=== PATIENT | female | born 1985 | race Caucasian/White ===

== ENCOUNTER 2018-05-25 13:27 | Emergency (ER) | payer SELFPAY ==
[~2018-05-25] VITALS: Ht 177.8 cm; Wt 90.0 kg
[~2018-05-25 13:27] MED LIST: MOTRIN400 MG OR
[2018-05-25 14:31] LABS: HEMATOCRIT 45.7 % (37.0-47.0); HEMOGLOBIN 14.9 g/dl (12.0-16.0); IMMATURE GRANULOCYTES 0.5 % (0.0-5.0); MEAN CELL VOLUME 89.6 fL CALC (80.0-100.0); MEAN CORPUSCULAR HGB 29.2 pG CALC (26.0-32.0); MEAN CORPUSCULAR HGB CONC 32.6 g/L CALC (32.0-36.0); NEUT# 6.42 thou/uL (2.00-7.15); RED BLOOD COUNT 5.1 mill/uL (4.20-5.60); RED CELL DISTRI WIDTH 13.7 % (11.5-15.5)
[2018-05-25 14:47] LABS: ANION GAP 18 (6-22 (CALC)); BUN 11 mg/dL (7-17); BUN/CREATININE RATIO 14 (12-20 (CALC)); CARBON DIOXIDE 28 mmol/l (22-30); CHLORIDE 101 mmol/l (95-108); CREATININE 0.8 mg/dL (0.5-1.0); GFR > 60 ML/MIN (>=60 (CALC)); GFR FOR AFR.AMER. > 60 ML/MIN (>=60 (CALC)); POTASSIUM 3.3 mmol/l (3.5-5.1); SODIUM 143 mmol/l (137-146)
[2018-05-25 14:54] LABS: URINE BILIRUBIN - DIPSTICK NEGATIVE (NEGATIVE); URINE BLOOD DIPSTICK SMALL (NEGATIVE); URINE COLOR YELLOW; URINE GLUCOSE - DIPSTICK NEGATIVE (NEGATIVE); URINE KETONE TRACE mg/dL (NEGATIVE); URINE LEUK ESTERASE TRACE (NEGATIVE); URINE PROTEIN - DIPSTICK TRACE mg/dL (NEG-TRACE); URINE UROBILINOGEN - DIPSTICK 0.2 E.U./dL (0.2)
[2018-05-25 14:57] LABS: URINE CLARITY CLEAR
[2018-05-25 14:58] LABS: COCAINE NEGATIVE (NEGATIVE); METHADONE NEGATIVE (NEGATIVE); TETRAHYDROCANNABIONOL POSITIVE (NEGATIVE)
[2018-05-25 14:59] LABS: BARBITURATES NEGATIVE (NEGATIVE); OXCYCODONE NEGATIVE (NEGATIVE); TRICYLIC ANTIDEPRESSANTS NEGATIVE (NEGATIVE); URINE NITRITE - DIPSTICK NEGATIVE (Negative)
[2018-05-25 15:02] LABS: URINE BACTERIA FEW hpf; URINE EPITHELIAL CELLS MODERATE EPI/hpf (0-FEW); URINE MUCUS FEW hpf (NONE-FEW); URINE WBC 0-2 WBC/hpf (0-5)
[2018-05-25] MEDS ORDERED: POTASSIUM CHLO20 ME1 PO (15:14)
[2018-05-25 15:21] VITALS: BP 149/107
== END 2018-05-25 15:37 | disposition home or self-care (01) | DRG 897 ==
LOC: ED 13:27
PROVIDERS: Family Medicine
DX: F15.180 Other stimulant abuse with stimulant-induced anxiety disorder (principal); E87.6 Hypokalemia; F17.210 Nicotine dependence, cigarettes, uncomplicated
CPT/HCPCS: J2060

== ENCOUNTER 2018-12-06 18:40 | Emergency (ER) | payer SELFPAY ==
[~2018-12-06] VITALS: Ht 177.8 cm; Wt 104.5 kg
[~2018-12-06 18:40] MED LIST changes: +POTASSIUM CHLO20 ME1 PO
[2018-12-06] MEDS ORDERED: ZITHROMAX500 MG PO (19:36)
[2018-12-06] MEDS ORDERED: TESSALON PER100 MG PO (19:36)
[2018-12-06 19:39] VITALS: BP 147/81
== END 2018-12-06 19:39 | disposition home or self-care (01) | DRG 153 ==
LOC: ED 18:40
DX: J02.9 Acute pharyngitis, unspecified (principal); R05 Cough

== ENCOUNTER 2018-12-21 23:21 | Emergency (ER) | payer SELFPAY ==
[~2018-12-21] VITALS: Ht 177.8 cm; Wt 104.0 kg
[~2018-12-21 23:21] MED LIST changes: +TESSALON PER100 MG PO; +ZITHROMAX500 MG PO
[2018-12-22] MEDS ORDERED: BACTRIM DS1 TAB PO (01:41)
[2018-12-22] MEDS ORDERED: ROBITUSSIN AC10 ML PO (01:42)
[2018-12-22 01:49] VITALS: BP 132/79
== END 2018-12-22 02:15 | disposition home or self-care (01) | DRG 153 ==
LOC: ED 23:21
DX: J06.9 Acute upper respiratory infection, unspecified (principal); R05 Cough

== ENCOUNTER 2019-08-17 23:37 | Emergency (ER) | payer SELFPAY ==
[~2019-08-17] VITALS: Ht 177.8 cm; Wt 109.4 kg
[~2019-08-17 23:37] MED LIST changes: +BACTRIM DS1 TAB PO; +ROBITUSSIN AC10 ML PO
[2019-08-18 00:37] LABS: URINE BILIRUBIN - DIPSTICK NEGATIVE (NEGATIVE); URINE BLOOD DIPSTICK MODERATE (NEGATIVE); URINE COLOR YELLOW; URINE GLUCOSE - DIPSTICK NEGATIVE (NEGATIVE); URINE KETONE NEGATIVE (NEGATIVE); URINE NITRITE - DIPSTICK NEGATIVE (Negative); URINE PH 5.5 (4.5-8.0); URINE PROTEIN - DIPSTICK NEGATIVE (NEG-TRACE); URINE SPECIFIC GRAVITY >=1.030; URINE UROBILINOGEN - DIPSTICK 0.2 E.U./dL (0.2)
[2019-08-18 00:38] LABS: URINE LEUK ESTERASE MODERATE (NEGATIVE)
[2019-08-18 00:40] LABS: COCAINE NEGATIVE (NEGATIVE)
[2019-08-18 00:41] LABS: BARBITURATES POSITIVE (NEGATIVE); METHADONE NEGATIVE (NEGATIVE); TETRAHYDROCANNABIONOL NEGATIVE (NEGATIVE); TRICYLIC ANTIDEPRESSANTS NEGATIVE (NEGATIVE)
[2019-08-18 00:42] LABS: OXCYCODONE NEGATIVE (NEGATIVE)
[2019-08-18 00:47] LABS: URINE BACTERIA FEW hpf; URINE SQUAMOUS EPITHELIAL CELL FEW EPI/hpf (0-FEW)
[2019-08-18] MEDS ORDERED: BACTRIM DS1 TAB PO (01:28)
[2019-08-18] MEDS ORDERED: FIORICET PO (01:28)
[2019-08-18 01:48] VITALS: BP 122/71
== END 2019-08-18 01:48 | disposition home or self-care (01) | DRG 914 ==
LOC: ED 23:37
PROVIDERS: Emergency Medicine
DX: S09.90XA Unspecified injury of head, initial encounter (principal); N39.0 Urinary tract infection, site not specified; F19.10 Other psychoactive substance abuse, uncomplicated; V18.0XXA Pedal cycle driver injured in noncollision transport accident in nontraffic accident, initial encounter; Y93.55 Activity, bike riding; Y92.410 Unspecified street and highway as the place of occurrence of the external cause